=== PATIENT | male | born 1950 | race Caucasian/White ===

== ENCOUNTER 2019-12-22 10:33 | Outpatient (CLI) | payer MEDICARE, OTHER ==
[~2019-12-22 10:33] MED LIST: AMLO2.5T5 PO; ATOR10TA9 PO; CHOL200024 PO; FERR325T17 PO; HYDROCHLOROTH12.5 MG PO; MULT-516 PO; POTA20TA89 PO; QUIN40TA PO
== END 2019-12-22 23:59 | disposition home or self-care (01) ==
LOC: RAD 10:33
PROVIDERS: ATTEND Surgery
DX: E21.0 Primary hyperparathyroidism (principal)
CPT/HCPCS: 76536; 78070; A9500

== ENCOUNTER 2020-01-27 10:20 | Outpatient (CLI) | payer MEDICARE ==
[2020-01-27] MEDS ORDERED: LISI40TA PO (10:46)
[2020-01-27] MEDS ORDERED: MAG PO (10:46)
[2020-01-27] MEDS ORDERED: VITAMIN B12 PO (10:46)
[2020-01-27] MEDS ORDERED: ZINC PO (10:46)
[2020-01-27] MEDS ORDERED: CALCIUM CIT PO (10:46)
[2020-01-27] MEDS ORDERED: IRON PO (10:46)
[2020-01-27 12:32] LABS: ANION GAP 4 mmol/L (5-15); CALCIUM 11.4 mg/dL (8.5-10.1); CHLORIDE 107 mmol/L (98-107); CREATININE 1.39 mg/dL (0.7-1.3)
[2020-01-27 12:35] LABS: ALANINE AMINOTRANSFERASE 33 U/L (12-78); ALKALINE PHOSPHATASE 60 U/L (45-117); BILIRUBIN,TOTAL 0.8 mg/dL (0.2-1.0); TOTAL PROTEIN 7.4 g/dL (6.4-8.2)
[2020-02-01] MEDS ORDERED: CALC200T24 PO (08:46)
[2020-02-01] MEDS ORDERED: CALC0.5C9 PO (08:46)
[2020-02-01] MEDS ORDERED: HYDR-3240 PO (10:16)
== END 2020-01-27 23:59 | disposition home or self-care (01) ==
LOC: STAR 10:20
PROVIDERS: ATTEND Surgery
DX: Z01.812 Encounter for preprocedural laboratory examination (principal); I45.2 Bifascicular block; Z20.828 Contact with and (suspected) exposure to other viral communicable diseases
CPT/HCPCS: 36415; 80053; 87635; 93005

== ENCOUNTER 2020-12-29 12:23 | Outpatient (CLI) | payer MEDICARE ==
[~2020-12-29 12:23] MED LIST changes: +CALC0.5C9 PO; +CALC200T24 PO; +CALCIUM CIT PO; +HYDR-2214 PO; +IRON PO; +LISI40TA9 PO; +MAG PO; +VITAMIN B12 PO; +ZINC PO
== END 2020-12-29 23:59 | disposition home or self-care (01) ==
LOC: RAD 12:23
PROVIDERS: ATTEND Physician Assistant Medical
DX: C73 Malignant neoplasm of thyroid gland (principal); E04.1 Nontoxic single thyroid nodule
CPT/HCPCS: 10005; 88112; 88173